=== PATIENT | female | born 1995 | race African-American/Black ===

== ENCOUNTER 2020-06-26 22:18 | Emergency (ER) | payer BC ==
[2020-06-27] MEDS ORDERED: DEXAMETHASONE SOD PHOSPHATE INJ 4 MG/1 ML VIAL IM ONE (00:28)
[2020-06-27] MEDS ORDERED: ACYCLOVIR 800 MG TABLET PO ONE (00:28)
[2020-06-27] MEDS ORDERED: HYDROCODONE/ACETAMINOPHEN 5-325 MG TABLET PO ONE (00:29)
--- NOTE | 2020-06-27 00:35 | ER Document Report ---
ED Skin Rash/Insect Bite/Abscs - General Chief Complaint: Skin Problem Stated Complaint: MUSCLE ACHES,NAUSEA Time Seen by Provider: 06/26/20 23:36 Primary Care Provider: [facility] [Provider Group] - Follow up as needed Mode of Arrival: Ambulatory Information source: Patient Notes: Patient is a 25-year-old female comes emergency room complaining of right sided pain on her chest. Patient states is been approximately 3 to 4 days getting worse. She describes as a uqco-vks-mhniggk type pain that she ranks it a 3 or 4 out of 5. She states this is about the third or fourth time this is happened over the past several months and it seems to be located mostly in that area but has popped up on the right arm once. TRAVEL OUTSIDE OF THE [place] IN LAST 30 DAYS: No - HPI Patient complains to provider of: Skin rash/lesion, Tender/swollen area Onset: Yesterday Onset/Duration: Sudden, Constant Quality of pain: Sharp, Other - Sdzm-tsu-kzttigh and painful Severity: Moderate Pain Level: 4 Skin Character: Erythema, Lesion, Papules, Patchy, Rash, Vesicular Skin Temperature: Warm Quality of rash: Painful Identify cause: No Exacerbated by: Denies Relieved by: Denies Similar symptoms previously: Yes Recently seen / treated by doctor: No - Related Data Allergies/Adverse Reactions: No Known Allergies Allergy (Unverified 06/26/20 22:47) Past Medical History - General Information source: Patient - Social History Smoking Status: Never Smoker Chew tobacco use (# tins/day): No Smoking Education Provided: No Frequency of alcohol use: None Drug Abuse: None Lives with: Family Family History: Reviewed & Not Pertinent Patient has homicidal ideation: No Review of Systems - Review of Systems Constitutional: No symptoms reported EENT: No symptoms reported Cardiovascular: No symptoms reported Respiratory: No symptoms reported Gastrointestinal: No symptoms reported Genitourinary: No symptoms reported Female Genitourinary: No symptoms reported Musculoskeletal: No symptoms reported Skin: See HPI, Rash Hematologic/Lymphatic: No symptoms reported Neurological/Psychological: No symptoms reported -: Yes All other systems reviewed and negative Physical Exam - Vital signs Vitals: Temp Pulse Resp BP Pulse Ox 99.0 F 85 16 134/72 H 97 06/26/20 22:51 06/26/20 22:51 06/26/20 22:51 06/26/20 22:51 06/26/20 22:51 Interpretation: Hypertensive - Notes Notes: PHYSICAL EXAMINATION: GENERAL: Patient is a well-nourished well-developed 25-year-old morbidly obese female is in no apparent distress on physical exam but does appear very uncomfortable. HEAD: Atraumatic, normocephalic. EYES: Pupils equal round and reactive to light, extraocular movements intact, conjunctiva are normal. ENT: Nares patent, oropharynx clear without exudates. Moist mucous membranes. LUNGS: Breath sounds clear to auscultation bilaterally and equal. No wheezes rales or rhonchi. HEART: Regular rate and rhythm without murmurs Female : deferred Musculoskeletal: Normal range of motion, no pitting or edema. No cyanosis. NEUROLOGICAL: Normal speech, normal gait. Normal sensory, motor exams PSYCH: Normal mood, normal affect. SKIN: Patient's area of concern is her right lateral rib area around T7 and 8 there is a patch of vesicles that appears to be a presentation of shingles however cannot totally rule out a dermatitis of allergic type. Given that it is very painful and leaning more towards the area of shingles. There is very reddened with some papules that are noted that are not completely filled with fluid at this time. Was very tender to palpate. Course - Re-evaluation Re-evalutation: 06/27/20 01:59 As stated in early physical examination the area does follow a dermatome. Jimi nt had another bout of this it was painful on her arm about 2 months ago. She denies ever having had shingles in the past. But also denies any contact with any known irritants. Given the findings and the painfulness of the area I consider this to be more of a presentation of shingles. At this time we will treat for that as well as a inflammatory response and put her on some steroids as well. Also placing her on acyclovir. - Vital Signs Vital signs: Temp Pulse Resp BP Pulse Ox 98.3 F 86 20 129/69 H 98 06/27/20 01:24 06/27/20 01:24 06/27/20 01:24 06/27/20 01:24 06/27/20 01:24 Discharge - Discharge Clinical Impression: Allergic dermatitis Shingles Qualifiers: Herpes zoster complications: without complications Qualified Code(s): B02.9 - Zoster without complications Disposition: HOME, SELF-CARE Instructions: Contact Dermatitis ([facility]), Shingles ([facility]) Additional Instructions: Home and rest. Medications prescribed. As I informed you it is hard to tell which of these problems this really is although with it being only on one side of the body and only and mostly in that right chest rib area it lends more to go along with the contact dermatitis which is what we are thinking it is at this time. Although it can be a contact dermatitis such him but it is unusual for that only occur on one side of the body and often is you tell me years has. So we are to treat you with some steroids and a antiviral as we have discussed and of little pain medication. I highly recommend you follow-up with your primary care doctor if you do not have one I will given you the name of the [facility] that she can possibly contact and go see. This is a presentation of the shingles can be caused by increased anxiety foods too much sunlight stress etc. so this may be something that you may try to adjust. Should you have any concerns or problems he can return to ER for reevaluation. Prescriptions: Methylprednisolone [Medrol Dosepack (4 mg/Tab) 21 Tab/Dosepak] 4 mg PO ASDIR PRN #21 tab.ds.pk PRN Reason: Hydrocodone/Acetaminophen [[place] 5-325 mg Tablet] 1 tab PO Q6 PRN #12 tablet PRN Reason: Acyclovir [Zovirax 800 mg Tablet] 800 mg PO 5XD #50 tab Forms: Elevated Blood Pressure Referrals: [facility] [Provider Group] - Follow up as needed
[2020-06-27] MEDS ORDERED: ACYCLOVIR 800 MG TABLET ONE (00:59)
[2020-06-27 02:42] VITALS: BP 129/69
== END 2020-06-27 01:24 | disposition home or self-care (01) ==
LOC: ER 22:18
DX: B02.9 Zoster without complications (principal); L23.9 Allergic contact dermatitis, unspecified cause; E66.01 Morbid (severe) obesity due to excess calories
CPT/HCPCS: 99283; 96372; J1100; J3490

== ENCOUNTER 2020-10-14 19:38 | Emergency (ER) | payer BC ==
[2020-10-14] MEDS ORDERED: ONDANSETRON 4 MG TAB.RAPDIS PO ONE (22:17)
--- NOTE | 2020-10-14 22:19 | ER Document Report ---
ED General - General Stated Complaint: NAUSEA/VOMITING/HEADACHE/ABDOMINAL PAIN/DIARRHEA Time Seen by Provider: 10/14/20 21:59 Mode of Arrival: Ambulatory Information source: Patient Notes: Patient is a 25-year-old -[place] female coming in today with 3 days of nausea vomiting and diarrhea. Also having vaginal pain. Having a discharge which is white in color. no Fevers or chills. No dysuria. Unsure if p regnant. TRAVEL OUTSIDE OF THE [place] IN LAST 30 DAYS: No - Related Data Allergies/Adverse Reactions: No Known Allergies Allergy (Verified 10/14/20 22:34) Past Medical History - Social History Smoking Status: Unknown if Ever Smoked Family History: Reviewed & Not Pertinent Review of Systems - Review of Systems Notes: Constitutional: No fevers. No chills. EENT: No eye redness. No eye pain. No ear pain. No sore throat. Cardiovascular: No chest pain. No palpitations. Respiratory: No cough. No shortness of breath. No respiratory distress. Gastrointestinal: Positive for nausea vomiting and diarrhea Genitourinary: Vaginal pain, vaginal discharge Musculoskeletal: Atraumatic. No swelling. No deformities. Skin: No rash or lesions. Lymphatic: No swollen lymph nodes. Neurologic: No headache. No syncope. Psychiatric: No suicidal or homicidal ideation. Physical Exam - Vital signs Vitals: Temp 99.6 F 10/14/20 19:40 - Notes Notes: General: Well-developed, well-nourished. In no acute distress. Non-toxic appearing. Cardiac: Well-perfused. Regular rate and rhythm. No murmurs, rubs, or gallops. Pulmonary: No respiratory distress. No cyanosis. Bilateral lung edward are clear to auscultation. Abdominal: Non-distended. Non-rigid. Bowels sounds are present in all four quadrants. No guarding or rebound. HEENT: Head is atraumatic. Conjunctivae not reddened. No tearing. PERRL. EOMI. Orbits atraumatic. No periorbital swelling or erythema. Oropharynx is without erythema, swelling, or exudates. Neck: Supple. No adenopathy. No meningismus. Dermatologic: Warm with good turgor. No rash. Atraumatic. Chest: Atraumatic. No chest wall tenderness to palpation. Musculoskeletal: Moves all extremities well. No range of motion deficits. no muscular or joint tenderness. No paraspinal muscle tenderness. no midline spinal tenderness or step-off. Genitourinary: Chaperoned by Adela CISNEROS. External genitalia normal. Speculum exam reveals moderate amount of whitish-yellow cervical discharge. Some cervical erythema. No cervical motion tenderness. Neurologic: No gross neurologic deficits. Psychiatric: Normal mood. Course - Re-evaluation Re-evalutation: 10/14/20 22:19 Exam unremarkable. No signs of dehydration. Nausea vomiting and diarrhea is likely viral. We will check a urinalysis and a test. Zofran for nausea. We will get a pelvic exam for the vaginal pain and discharge. 10/14/20 23:21 No urinary infection. No . Wet mount appears consistent with bacterial vaginosis we will start her on metronidazole for this. We will also send her home with some Zofran for nausea and vomiting for what I believe is most likely a viral gastroenteritis. - Vital Signs Vital signs: Temp Pulse Resp BP Pulse Ox 99.6 F 91 16 112/59 L 100 10/14/20 22:06 10/14/20 22:06 10/14/20 22:06 10/14/20 22:06 10/14/20 22:06 - Laboratory Laboratory results interpreted by me: 10/14/20 22:13 Urine Ketones TRACE H Leukocyte Esterase Rfl TRACE H Urine Ascorbic Acid 20 H Discharge - Discharge Clinical Impression: Gastroenteritis, Bacterial vaginosis Condition: Good Disposition: HOME, SELF-CARE Instructions: Clear Liquid Diet ([facility]), Gastroenteritis (adult) ([facility]), Vaginosis, Bacterial ([facility]) Prescriptions: Metronidazole [Flagyl 500 mg Tablet] 500 mg PO BID 7 Days #14 tablet
[2020-10-14 23:14] LABS: APPEARANCE,URINE CLEAR; BILIRUBIN,URINE NEGATIVE (NEGATIVE); COLOR,URINE YELLOW; GLUCOSE, URINE NEGATIVE (NEGATIVE); KETONES,URINE TRACE mg/dL (NEGATIVE); PROTEIN,URINE NEGATIVE (NEGATIVE); URINE SPECIFIC GRAVITY 1.006; UROBILINOGEN,URINE NEGATIVE mg/dL (<2.0)
[2020-10-14 23:15] LABS: BACTERIA (WET MOUNT) 4+ BACTERIA SEEN; EPITHELIALS (WET MOUNT) 3+ EPITHELIALS SEEN; RBCS (WET MOUNT) FEW RBCS SEEN; T.VAGINALIS (WET MOUNT) NO TRICHOMONAS SEEN; WBCS (WET MOUNT) 1+ WBCS SEEN; YEAST (WET MOUNT) NO YEAST SEEN
[2020-10-14] MEDS ORDERED: LIDOCAINE 1% INJ-PF (10 MG/ML) 30 ML SDV NEB ONE (23:20)
[2020-10-14] MEDS ORDERED: CEFTRIAXONE INJ 250 MG VIAL IM ONE (23:20)
[2020-10-14] MEDS ORDERED: AZITHROMYCIN 250 MG TABLET PO ONE (23:20)
[2020-10-14] MEDS ORDERED: ONDANSETRON ODT 4 MG TAB (6 TAB/ER DISP) PO PRN (23:23)
[2020-10-14 23:46] VITALS: BP 112/54
[2020-10-15 00:45] LABS: CHLAM PCR NOT DETECTED (NOT DETECT)
== END 2020-10-14 23:45 | disposition home or self-care (01) ==
LOC: ER 19:38
DX: K52.9 Noninfective gastroenteritis and colitis, unspecified (principal); N76.0 Acute vaginitis; B96.89 Other specified bacterial agents as the cause of diseases classified elsewhere; R11.2 Nausea with vomiting, unspecified; R51.9 Headache, unspecified; R10.9 Unspecified abdominal pain; R10.2 Pelvic and perineal pain
CPT/HCPCS: 99284; 96372; 87210; 81025; 81001; 87491; 87591; S0119; J3490; J0696